=== PATIENT | male | born 1955 | race Two or more races ===

== ENCOUNTER 2024-12-08 21:49 | Emergency (ER) | payer MEDICARE, SELFPAY ==
[2024-12-08] VITALS (8 sets, daily range): BP systolic 145–168; BP diastolic 79–87; PULSE 60–63; TEMP 36.7; O2SAT 98–100; BMI 31.5
[2024-12-08 23:18] LABS: Glucose Urine UA NEGATIVE (NEGATIVE)
--- NOTE | 2024-12-08 23:21 | PC.NURSE ---
this patient complains of right flank pain 8/10 sharp which travels to right lower abdomen onset 2 or 3 days ago this patient does not speak Ethiopian and requesting his son to interpret for him. this patient voices no other complaints or needs and shows no sins of distress
[2024-12-08 23:23] LABS: Cast Seen? NONE SEEN #/LPF (NONE SEEN); Crystals Seen? None Seen #/HPF (None Seen); Urine Culture Indicated NO
[2024-12-09] VITALS (15 sets, daily range): BP systolic 143–165; BP diastolic 75–95; PULSE 60; TEMP 36.5; O2SAT 96–100
--- NOTE | 2024-12-09 00:22 | ED_ITS ---
HPI - Abdominal Pain General Chief Complaint: Abdominal Pain Stated Complaint: Abdominal Pain Time Seen by Provider: 12/09/24 00:03 Source: patient Mode of arrival: walk-in History of Present Illness HPI narrative: son interpreting. Patient with 2 days of RLQ pain. no fever, vomiting or diarrhea. neg urinary or respiratory symptoms Related Data Home Medications ?Medication ?Instructions ?Recorded ?Confirmed No Known Home Medications 12/08/2411/14 Allergies Allergy/AdvReac Type Severity Reaction Status Date / Time No Known Drug Allergies Allergy Verified 12/08/24 22:09 Review of Systems ROS Status of ROS 10 or more systems reviewed and unremark able except as noted in history and below and other (limited due to language barrier) Exam Constitutional Vital Signs, click to edit/add: Last Vital Signs Temp 98.0 F 12/08/24 22:05 Pulse 60 12/08/24 23:18 Resp 18 12/08/24 23:18 BP 143/81 H 12/09/24 02:00 Pulse Ox 99 12/09/24 02:10 O2 Del Method Room Air 12/08/24 22:05 Common normals: no apparent distress, average body habitus, no limitations, healthy appearing, alert and well nourished [place] Common normals: normocephalic and head/scalp atraumatic Eye Common normals: EOMs intact bilaterally and conjunctivae normal Respiratory Common normals: normal respiratory effort, no retractions, no use of accessory muscles and clear to auscultation bilaterally Cardio Common normals: regular rate, regular rhythm, S1 normal heart sound and S2 normal heart sound GI Other: RLQ tenderness. no guarding Extremity Common normals: normal to inspection and full ROM Neuro Common normals: oriented x3, CN's II-XII intact bilaterally and moves all extremities Psych Appearance: grossly normal Course Vital Signs Vital signs: Vital Signs Temperature 98.0 F 12/08/24 22:05 Pulse Rate 63 12/08/24 22:05 Respiratory Rate 18 12/08/24 22:05 Blood Pressure 155/86 H 12/08/24 22:05 Pulse Oximetry 98 12/08/24 22:05 Oxygen Delivery Method Room Air 12/08/24 22:05 Temperature 98.0 F 12/08/24 22:05 Pulse Rate 60 12/08/24 23:18 Respiratory Rate 18 12/08/24 23:18 Blood Pressure 143/81 H 12/09/24 02:00 Pulse Oximetry 99 12/09/24 02:10 Oxygen Delivery Method Room Air 12/08/24 22:05 MDM - Abdominal Pain MDM Narrative Medical decision making narrative: patient presents with RLQ pain for couple of days. mild tenderness on exam. No guarding. afebrile. CBC, CMP and UA WNL. CT without acute findings. Patient informed of the results via his son who was interpreting. Given dose of IM toradol and discharged home Lab Data Labs: Lab Results 12/08/24 12/08/24 Range/Units 23:11 23:55 WBC 8.3 (4.0-11.0) 10^3/uL RBC 4.50 L (4.70-6.10) 10^6/uL Hgb 13.9 L (14.0-18.0) g/dL Hct 39.6 L (42.0-54.0) % MCV 88.0 (80.0-94.0) fL MCH 30.9 (25.9-34.0) pg MCHC 35.1 (29.9-35.2) g/dL RDW 13.2 (11.0-15.0) % Plt Count 248 (150-450) 10^3/uL MPV 11.6 (9.5-13.5) fL Neut % (Auto) 52.6 (43.0-75.0) % Lymph % (Auto) 31.4 (20.5-60.0) % [place] % (Auto) 11.2 (1.7-12.0) % Eos % (Auto) 3.6 (0.9-7.0) % Baso % (Auto) 1.0 (0.2-2.0) % Neut # (Auto) 4.3 (1.4-6.5) 10^3/uL Lymph # (Auto) 2.6 (1.2-3.8) 10^3/uL [place] # (Auto) 0.9 H (0.3-0.8) 10^3/uL Eos # (Auto) 0.3 (0.0-0.7) 10^3/uL Baso # (Auto) 0.1 (0.0-0.1) 10^3/uL Abs Immat Gran (auto) 0.02 (0.00-0.03) 10^3/uL Imm/Tot Granulo (auto) 0.2 (0.0-0.5) % Sodium 137 (136-145) mmol/L Potassium 3.7 (3.5-5.1) mmol/L Chloride 104 (98-107) mmol/L Carbon Dioxide 27.4 (21.0-32.0) mmol/L Anion Gap 9.3 BUN 14.0 (7.0-18.0) mg/dL Creatinine 0.79 (0.70-1.30) mg/dL Est GFR ( Amer) >60 (>=60 mL/min/1.73m^2) Est GFR (Non-Af Amer) >60 (>=60 mL/min/1.73m^2) BUN/Creatinine Ratio 17.7 Glucose 97 (74-106) mg/dL Lactate 0.9 (0.4-2.0) mmol/L Calcium 8.6 (8.5-10.1) mg/dL Total Bilirubin 0.5 (0.2-1.0) mg/dL AST 17 (15-37) U/L ALT 30 (16-63) U/L Alkaline Phosphatase 77 (46-116) U/L Total Protein 7.3 (6.4-8.2) g/dL Albumin 3.9 (3.4-5.0) g/dL Globulin 3.4 g/dL Albumin/Globulin Ratio 1.1 Urine Color Lt. yellow (YELLOW) Urine Clarity Clear (CLEAR) Urine pH 7.0 (5.0-9.0) Ur Specific [place] <=1.005 A (1.005-1.025) Urine Protein Negative (NEG/TRACE) mg/dL Urine Glucose (UA) Negative (NEGATIVE) mg/dL Urine Ketones Negative (NEGATIVE) mg/dL Urine Occult Blood Negative (NEGATIVE) Urine Nitrite Negative (NEGATIVE) Urine Bilirubin Negative (NEGATIVE) Urine Urobilinogen 0.2 (0.2-1.0) EU/dL Ur Leukocyte Esterase Negative (NEGATIVE) Urine RBC None seen (0-2) #/HPF Urine WBC 0-2 A (NONE SEEN) #/HPF Ur Squamous Epith Cells Rare (NONE/RARE) #/LPF Urine Crystals None seen (None Seen) #/HPF Urine Bacteria Trace A (NONE SEEN) #/HPF Urine Casts None seen (NONE SEEN) #/LPF Urine Mucus None seen (NONE SEEN) Ur Culture Indicated? No Discharge Plan Discharge Chief Complaint: Abdominal Pain Clinical Impression: Abdominal pain Patient Disposition: Home, Self-Care Prescriptions / Home Meds: No Action No Known Home Medications Print Language: Swedish Instructions: Abdominal Pain (ED) Additional Instructions: use ibuprofen or tylenol for pain and follow up with your doctor next week for recheck Referrals: Physician,Non-Staff, MD [Primary Care Provider] - 1 week
[2024-12-09 00:38] LABS: Hematocrit 39.6 % (42.0-54.0); Hemoglobin 13.9 g/dL (14.0-18.0); Immature Granulocytes Abs Auto 0.02 10^3/uL (0.00-0.03); Immature Granulocytes Pct Auto 0.2 % (0.0-0.5); Lymphocytes Absolute Auto 2.6 10^3/uL (1.2-3.8); Mean Corpuscular HGB Conc 35.1 g/dL (29.9-35.2); Mean Corpuscular Hemoglobin 30.9 pg (25.9-34.0); Mean Corpuscular Volume 88.0 fL (80.0-94.0); Platelet Count 248 10^3/uL (150-450); Red Blood Count 4.50 10^6/uL (4.70-6.10); White Blood Count 8.3 10^3/uL (4.0-11.0)
[2024-12-09 00:51] LABS: Lactate/Lactic Acid 0.9 mmol/L (0.4-2.0)
[2024-12-09 00:57] LABS: Alanine Aminotransferase 30 U/L (16-63); Albumin Globulin Ratio 1.1; Albumin Level 3.9 g/dL (3.4-5.0); Alkaline Phosphatase 77 U/L (46-116); Anion Gap 9.3; Aspartate Amino Transferase 17 U/L (15-37); Blood Urea Nitrogen 14.0 mg/dL (7.0-18.0); Calcium 8.6 mg/dL (8.5-10.1); Carbon Dioxide 27.4 mmol/L (21.0-32.0); Chloride 104 mmol/L (98-107); Estimated GFR (African America >60 (>=60 mL/min/1.73m^2); Estimated GFR (Non-African Ame >60 (>=60 mL/min/1.73m^2); Globulin 3.4 g/dL; Glucose 97 mg/dL (74-106); Potassium 3.7 mmol/L (3.5-5.1); Sodium 137 mmol/L (136-145); Total Protein 7.3 g/dL (6.4-8.2)
[2024-12-09] MEDS: KETOROLAC TROMETHAMINE 30 MG/ML VIAL IVP (03:28)
--- NOTE | 2024-12-09 03:43 | PC.NURSE ---
i gave this patient verbal and written discharge orders along with a sheet of doctors accepting new patient. this patient, , and son voices yes to understanding these discharge orders. at time of discharge this patient, , and son voices no concerns, needs and this patient shows no signs of distress
== END 2024-12-09 03:39 | disposition home or self-care (01) ==
PROVIDERS: Emergency Provider Internal Medicine
DX: R10.31 Right lower quadrant pain (principal)
CPT/HCPCS: 36415; 74177; 80053; 81001; 83605; 85025; 96374; 99284; J1885; Q9967